=== PATIENT | male | born 1970 | race Caucasian/White ===

== ENCOUNTER 2020-12-14 11:31 | Day surgery (SDC) | payer OTHER ==
[2020-12-12 12:28] LABS: COVID AG,FIA SOURCE NASOPHARYNGEAL
[~2020-12-14] VITALS: Ht 177.8 cm; Wt 154.5 kg
[~2020-12-14 11:31] MED LIST: SODIUM CHLORIDE 0.9% 1,000 ML IV ONE; SODIUM CHLORIDE 0.9% 1,000 ML ONE
[2020-12-14] MEDS ORDERED: LIDOCAINE/PF 2% 5 ML VIAL IM ONE (11:32)
[2020-12-14] MEDS ORDERED: PROPOFOL 1% 20 ML VIAL IVP ONE ×2 (11:32)
[2020-12-14 12:16] LABS: GLUCOMETER DEV NAME(LOC) SDS.; GLUCOSE,POINT OF CARE 184 MG/DL (70-110)
[2020-12-14] MEDS ORDERED: ATOR40TA71 PO (14:11)
[2020-12-14] MEDS ORDERED: METF-960 PO (14:11)
[2020-12-14] MEDS ORDERED: AMLO10TA55 PO (14:11)
[2020-12-14] MEDS ORDERED: PANT-31 PO (14:11)
== END 2020-12-14 14:55 | disposition home or self-care (01) ==
LOC: SURGERY 11:31
PROVIDERS: ATTEND Internal Medicine Gastroenterology
DX: D64.9 Anemia, unspecified (principal); K63.5 Polyp of colon; K29.70 Gastritis, unspecified, without bleeding; I10 Essential (primary) hypertension; E66.3 Overweight; E66.01 Morbid (severe) obesity due to excess calories; E78.5 Hyperlipidemia, unspecified; E11.9 Type 2 diabetes mellitus without complications; G89.29 Other chronic pain; Z79.899 Other long term (current) drug therapy; Z98.890 Other specified postprocedural states
CPT/HCPCS: 45380; 43239; 82962; 87426; C1769; C9803; J2704; J3490; J7030; 88305; 88312; 88313